=== PATIENT | female | born 1945 | race Caucasian/White ===

== ENCOUNTER 2021-09-28 19:15 | Emergency (ER) | payer MEDICARE, SELFPAY ==
--- NOTE | ~2021-09-28 | CT_ITS ---
EXAMINATION: CT HEAD WITHOUT CONTRAST CT CERVICAL SPINE WITHOUT CONTRAST CT MAXILLOFACIAL WITHOUT CONTRAST CLINICAL INFORMATION: Fall. Rule out fracture. COMPARISON: None. TECHNIQUE: Multidetector volumetric imaging of the head was performed without the administration of intravenous contrast. Images were also obtained with through the cervical spine as well as the facial bones from the frontal sinuses through the mandible. Multiplanar reconstructed images in coronal and sagittal orientations were submitted. This CT examination was performed using dose optimization techniques as appropriate, variously including the following: *Automated exposure control *Adjustment of mA and/or kV according to patient size (this includes techniques or standardized protocols for targeted exams where dose is matched to indication/reason for exam; i.e. extremities or head) *Use of iterative reconstruction technique DOSE: 1437 mGy-cm FINDINGS: HEAD: There is no evidence of acute intracranial hemorrhage or territorial infarction. No abnormal mass-effect or midline shift. No extra-axial fluid collections. [place] to white matter differentiation is well preserved. The ventricles are normal in size and configuration. There is no abnormal attenuation within the brain parenchyma. Right periorbital soft tissue swelling. No fractures. Hyperostosis frontalis interna. The sinuses and mastoid air cells are clear. MAXILLOFACIAL: The mandible, maxilla, pterygoid plates, nasal bones, zygomatic arches, paranasal sinus clemons, and bony orbits are intact. No acute osseous abnormality within the maxillofacial region. Marked right periorbital soft tissue swelling, preseptal in location. No post septal involvement. Extraocular muscles are unremarkable. Intraconal and extraconal fat is normal. Globes appear symmetric. Rightward deviation of the nasal septum. [place] torus. Bilateral temporomandibular joint osteoarthritis. The paranasal sinuses and mastoid air cells remain well-aerated. CERVICAL SPINE: Vertebral body heights are normal. No fractures of the vertebral bodies or posterior elements. Anterolisthesis of C3 on C4 is chronic and measures 3 mm. There is ankylosis of the facet joints from C2 through C4. Degenerative osteophytes and sclerosis are present at the atlantodental articulation, though normal alignment is maintained. Craniocervical junction is normal. Intervertebral discs are narrowed at multiple levels with associated endplate and uncovertebral osteophytes. As noted above, there is ankylosis of the facet joints from C2 through C4. Posterior disc calcified complexes are present at multiple levels, most notably C4-C5 and C5-C6, producing central canal narrowing. Multilevel neural foraminal encroachment is present bilaterally. No significant paravertebral soft tissue swelling. Atherosclerotic calcifications are present in the carotid arteries. CT/CT head/brain wo con IMPRESSION: 1. No acute intracranial pathology. 2. Right periorbital soft tissue swelling. No acute facial fractures or intraorbital abnormalities. 3. No acute fracture or acute malalignment in the cervical spine. 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
[2021-09-28 19:40] VITALS: BP 189/84; PULSE 64; RESP 16; TEMP 36.2; O2SAT 97; BMI 31.6
--- NOTE | 2021-09-28 21:59 | ED_ITS ---
HPI - Head Injury General Chief complaint: Head Injury Stated complaint: slipped and fell,hit head Time Seen by Provider: 09/28/21 21:51 Source: patient Mode of arrival: ambulatory Limitations: no limitations History of Present Illness HPI Narrative: Patient comes to emergency room complaining of fall. Prior to arrival, patient had a mechanical fall. Patient states that she has neuropathy, has trouble feeling her feet. Patient tripped fell and landed on cement floor. Patient landed on the right side of her of her body. Patient states that she did not lose consciousness, denies being on any blood thinners. States she has no neck pain, mild shoulder pain but is able to move it without any difficulty. A patient's right eye is swollen, states that the vision of the right eye is normal Related Data Allergies Allergy/AdvReac Type Severity Reaction Status Date / Time No Known Allergies Allergy Verified 09/28/21 21:57 Review of Systems Review of Systems: Constitutional : No Weight loss, No Fever, No Chills, No Night Sweats, No Fatigue, No Malaise ENT/Mouth : No Hearing loss, No Ear Pain, No Nasal Congestion, No Sinus Pain, No Hoarseness, No sore throat, No Rhinorrhea, No Swallowing Difficulty Eyes: No Eye Pain, No Swelling, No Redness, No Foreign Body, No Discharge, No Vision Changes or periorbital swelling and ecchymosis Cardiovascular : No Chest Pain, No SOB, No Dyspnea on Exertion, No Orthopnea, No Edema, No Palpitations Respiratory : No Cough, No Sputum, No Wheezing, No Smoke Exposure, No Dyspnea Gastrointestinal : No Nausea, No Vomiting, No Diarrhea, No Constipation, No abdominal Pain, No Hematochezia, No Melena Genitourinary : no irregular bleeding, No Dysuria, No Urinary Frequency, No Hematuria, No Urinary Incontinence, No Urgency, No Flank Pain, No Urinary Flow Changes, No Hesitancy Musculoskeletal : No joint pain, No Myalgias, No Joint Swelling Skin : No Skin Lesions, No rash Neuro : No Weakness, No Numbness, No Paresthesias, No Loss of Consciousness, No Dizziness, mild Headache Psych : No Anxiety/Panic, No Depression, No SI/HI/AH/VH, No Social Issues, Heme/Lymph: No Bruising, No Bleeding,No Lymphadenopathy Endocrine : No Polyuria, No Polydipsia, No Temperature Intolerance [facility] Social History Social History Advance Directives: No Physical Exam Vital Signs: Vital Signs: Last Vital Signs Temp 97.2 F 09/28/21 19:40 Pulse 56 09/28/21 22:44 Resp 18 09/28/21 22:44 BP 187/69 H 09/28/21 22:44 Pulse Ox 98 09/28/21 22:44 BMI result Body Mass Index 31.6 Const: Other: Appearance: Alert. Oriented X3. No acute distress. Eyes: Pupils equal, round and reactive to light. Patient has upper and lower palpebral swelling. Patient is able to the eyes in all directions, painlessly, nerve entrapment noted suspected ENT: Pharynx normal. Neck: Normal inspection. Neck supple. No lymph nodes noted. No crepitus, no palpable step-offs CVS: Normal heart rate and rhythm. Pulses normal. Normal S1 and S2 Respiratory: No respiratory distress. Breath sounds normal. No Wheezing. No rales Abdomen: Soft and nontender. No rigidity. No distention. Skin: Skin warm and dry. Normal skin color. Normal skin turgor. Extremities: No lower extremity edema. No Lacerations. No Rash Neuro: Oriented X 3. No motor deficit. No sensory deficit. Moving all extremities. No slurred speech. CN 2 through 12 grossly intact Psych: calm, cooperative, normal affect Course Course Course Narrative: I discussed the CT scan findings with the patient, no acute pathology. MDM - Head Injury Imaging Data CT scan of brain, cervical spine, facial bones: Radiologist's impression: HEAD: There is no evidence of acute intracranial hemorrhage or territorial infarction. No abnormal mass-effect or midline shift. No extra-axial fluid collections.? [place] to white matter differentiation is well preserved. The ventricles are normal in size and configuration. ? There is no abnormal attenuation within the brain parenchyma. Right periorbital soft tissue swelling. No fractures. Hyperostosis frontalis interna. The sinuses and mastoid air cells are clear. MAXILLOFACIAL: The mandible, maxilla, pterygoid plates, nasal bones, zygomatic arches, paranasal sinus clemons, and bony orbits are intact. No acute osseous abnormality within the maxillofacial region. Marked right periorbital soft tissue swelling, preseptal in location. No post septal involvement. Extraocular muscles are unremarkable. Intraconal and extraconal fat is normal. Globes appear symmetric. Rightward deviation of the nasal septum. [place] torus. Bilateral temporomandibular joint osteoarthritis. The paranasal sinuses and mastoid air cells remain well-aerated. CERVICAL SPINE: Vertebral body heights are normal. No fractures of the vertebral bodies or posterior elements. Anterolisthesis of C3 on C4 is chronic and measures 3 mm. There is ankylosis of the facet joints from C2 through C4. Degenerative osteophytes and sclerosis are present at the atlantodental articulation, though normal alignment is maintained. Craniocervical junction is normal. Intervertebral discs are narrowed at multiple levels with associated endplate and uncovertebral osteophytes. As noted above, there is ankylosis of the facet joints from C2 through C4. Posterior disc calcified complexes are present at multiple levels, most notably C4-C5 and C5-C6, producing central canal narrowing. Multilevel neural foraminal encroachment is present bilaterally. No significant paravertebral soft tissue swelling. Atherosclerotic calcifications are present in the carotid arteries. CT/CT facial bones wo con IMPRESSION: 1. No acute intracranial pathology. 2. Right periorbital soft tissue swelling. No acute facial fractures or intraorbital abnormalities. 3. No acute fracture or acute malalignment in the cervical spine. 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 If you have any worsening or new symptoms, please return to the emergency room or call [phone]
[2021-09-28] MEDS: Acetaminophen 325 MG TABLET 650 MG PO (22:13)
[2021-09-28 22:44] VITALS: BP 187/69; PULSE 56; RESP 18; O2SAT 98
== END 2021-09-28 23:25 | disposition home or self-care (01) ==
PROVIDERS: Emergency Provider Emergency Medicine; PCP Pediatrics
DX: S05.11XA Contusion of eyeball and orbital tissues, right eye, initial encounter (principal); G44.309 Post-traumatic headache, unspecified, not intractable; M54.2 Cervicalgia; W01.10XA Fall on same level from slipping, tripping and stumbling with subsequent striking against unspecified object, initial encounter; Y93.9 Activity, unspecified; Y92.410 Unspecified street and highway as the place of occurrence of the external cause; Y99.9 Unspecified external cause status; Z79.899 Other long term (current) drug therapy
CPT/HCPCS: 70450; 70486; 72125; 99283; 99284